=== PATIENT | female | born 1955 | race Two or more races ===

== ENCOUNTER 2020-08-24 07:00 | Day surgery (SDC) | payer OTHER ==
[~2020-08-24] VITALS: Ht 162.6 cm; Wt 62.1 kg
[~2020-08-24 07:00] MED LIST: DIOVA PO; LIVALO2 MG PO; SYNTHROID75 MCG PO; VITAMIN D PO; ZETIA10 MG PO
[2020-08-24] MEDS ORDERED: DIAZEPAM5 MG PO (07:39)
[2020-08-24] MEDS ORDERED: COLACE100 MG PO (07:39)
[2020-08-24] MEDS ORDERED: PERCOCET 5-3251 EACH PO (07:39)
== END 2020-08-25 12:00 | disposition home or self-care (01) ==
LOC: CIR.AMB 07:00 → O/R 11:12 → CIR.AMB 11:12 → SURG 11:12 → O/R 11:46 → CIR.AMB 08-25 12:00 → SURG 08-25 13:46
PROVIDERS: ATTEND Orthopaedic Surgery Orthopaedic Surgery of the Spine
DX: M50.021 Cervical disc disorder at C4-C5 level with myelopathy (principal); M50.022 Cervical disc disorder at C5-C6 level with myelopathy; M50.023 Cervical disc disorder at C6-C7 level with myelopathy; Z20.822 Contact with and (suspected) exposure to COVID-19; M48.02 Spinal stenosis, cervical region
CPT/HCPCS: 22551; 20930; 20939; 22552 ×2; 22846; 22853 ×3; C1776

== ENCOUNTER 2024-09-24 07:53 | Day surgery (SDC) | payer OTHER ==
[~2024-09-24 07:53] MED LIST changes: +COLACE100 MG PO; +DIAZEPAM5 MG PO; +PERCOCET 5-3251 EACH PO
[2024-09-24] MEDS ORDERED: ONDANSETRON HCL 2 MG/ML VIAL IV ONE (15:00)
[2024-09-24] MEDS ORDERED: fentaNYL CITRATE 50 MCG/ML AMPUL IV PUSH ONE (15:00)
[2024-09-24] MEDS ORDERED: DIPHENHYDRAMINE HCL 50 MG/ML VIAL 1ML IV ONE (15:00)
[2024-09-24] MEDS ORDERED: MIDAZOLAM HCL 2 MG/2 ML VIAL IV ONE (15:00)
== END 2024-09-24 16:25 | disposition home or self-care (01) ==
LOC: AMB-ENDOS 07:53
PROVIDERS: ATTEND Colon & Rectal Surgery
DX: D12.5 Benign neoplasm of sigmoid colon (principal); D12.8 Benign neoplasm of rectum; D12.3 Benign neoplasm of transverse colon; Z91.041 Radiographic dye allergy status; Z91.013 Allergy to seafood

== ENCOUNTER 2025-02-02 06:32 | Day surgery (SDC) | payer OTHER ==
[2025-02-02] MEDS ORDERED: DIPHENHYDRAMINE HCL 50 MG/ML VIAL 1ML IV ONE (09:00)
[2025-02-02] MEDS ORDERED: fentaNYL CITRATE 50 MCG/ML AMPUL IV PUSH ONE (09:00)
[2025-02-02] MEDS ORDERED: MIDAZOLAM HCL 2 MG/2 ML VIAL IV ONE (09:00)
[2025-02-02] MEDS ORDERED: ONDANSETRON HCL 2 MG/ML VIAL IV ONE (09:00)
== END 2025-02-02 10:30 | disposition home or self-care (01) ==
LOC: AMB-ENDOS 06:32
PROVIDERS: ATTEND Colon & Rectal Surgery
DX: D12.2 Benign neoplasm of ascending colon (principal); D12.3 Benign neoplasm of transverse colon; K63.5 Polyp of colon; K62.1 Rectal polyp; K57.30 Diverticulosis of large intestine without perforation or abscess without bleeding